=== PATIENT | female | born 1960 | race Caucasian/White ===

== ENCOUNTER 2017-05-22 08:54 | Day surgery (SDC) | payer OTHER ==
[2017-05-22] MEDS ORDERED: PROPOFOL 60 ML (09:30)
[2017-05-22] MEDS ORDERED: LIDOCAINE 2% (SDV) 5 ML INJ (09:30)
[2017-05-22] MEDS ORDERED: PROPOFOL 20 ML (10:10)
== END 2017-05-22 11:31 | disposition home or self-care (01) ==
LOC: GIL 08:54
DX: Z12.11 Encounter for screening for malignant neoplasm of colon (principal); K21.0 Gastro-esophageal reflux disease with esophagitis; K22.10 Ulcer of esophagus without bleeding; K64.8 Other hemorrhoids; K64.4 Residual hemorrhoidal skin tags
CPT/HCPCS: 43239; 88305; 88312; 88313

== ENCOUNTER → 2017-05-27 | Outpatient (CLI) | payer OTHER ==
[2017-05-27] MEDS: IOHEXOL 300MG/ML 30 ML BTL (14:30)
[2017-05-27] MEDS: HEPARIN 1000 UNITS/ML 10 ML INJ (15:00)
== END | disposition home or self-care (01) ==
LOC: RAD 13:16
DX: C50.919 Malignant neoplasm of unspecified site of unspecified female breast (principal)
CPT/HCPCS: 58340

== ENCOUNTER 2017-07-18 07:54 | Observation (INO) | payer OTHER ==
[~2017-07-18 07:54] MED LIST: BUPIVACAINE 0.5%/EPI (SDV) 30 ML INJ; CEFAZOLIN 1 GM INJ; CEFAZOLIN 2 GM/50 ML (PMX) 50 ML IVPB; EPHEDrine SULFATE 50 MG/5 ML SYG; FENTAnyl 50 MCG/ML VIAL; GLYCOPYRROLATE 0.4 MG INJ; MIDAZOLAM 1 MG/ML 2 ML INJ; NEOSTIGMINE 3 MG/3 ML SYRINGE; ONDANSETRON 4 MG INJ; PROPOFOL 20 ML; ROCURONIUM 50 MG INJ; SOD CHLORIDE 0.9% 1,000 ML IV; SUCCINYLCHOLINE CHLORIDE 100 MG/5 ML SYG IV
[2017-07-18] MEDS ORDERED: ISOSULFAN BLUE 1% 5 ML INJ SC (12:58)
[2017-07-18] MEDS ORDERED: PROCHLORPERAZINE 10 MG INJ IV (14:00)
[2017-07-18] MEDS ORDERED: HYDROmorphONE (0.2 MG/ML) 10ML SYG IV ×3 (14:00)
[2017-07-18] MEDS ORDERED: DIPHENHYDRAMINE 50 MG INJ IV (14:00)
[2017-07-18] MEDS ORDERED: hydrALAzine 20 MG INJ IV (14:00)
[2017-07-18] MEDS ORDERED: MEPERIDINE 25 MG INJ IV (14:00)
[2017-07-18] MEDS ORDERED: ONDANSETRON 4 MG INJ IV ×2 (14:00→16:00)
[2017-07-18] MEDS ORDERED: LABETALOL HCL 20MG INJ IV (14:00)
[2017-07-18] MEDS ORDERED: FENTAnyl 50 MCG/ML VIAL IV (14:00)
[2017-07-18] MEDS ORDERED: OXYCODONE/ACETAMINOPHEN (5/325) TAB PO (14:00)
[2017-07-18] MEDS ORDERED: MIDAZOLAM 1 MG/ML 2 ML INJ (14:05)
[2017-07-18] MEDS ORDERED: FENTAnyl 50 MCG/ML VIAL (14:05)
[2017-07-18] MEDS ORDERED: LIDOCAINE 2% (SDV) 5 ML INJ (14:19)
[2017-07-18] MEDS ORDERED: ONDANSETRON 4 MG INJ (14:19)
[2017-07-18] MEDS ORDERED: PROPOFOL 20 ML ×2 (14:19→14:52)
[2017-07-18] MEDS ORDERED: FAMOTIDINE 20 MG INJ (14:20)
[2017-07-18] MEDS ORDERED: DEXAMETHASONE 4 MG/ML 1 ML INJ (14:20)
[2017-07-18] MEDS ORDERED: GLYCOPYRROLATE 0.4 MG INJ (14:58)
[2017-07-18] MEDS ORDERED: HYDROmorphONE 2 MG/ML SYG (15:01)
[2017-07-18] MEDS ORDERED: ACETAMINOPHEN 1000MG/100ML IV 100 ML IVPB (16:00)
[2017-07-18] MEDS ORDERED: ACETAMINOPHEN 1000MG/100ML IV 100 ML (18:06)
[2017-07-18] MEDS: CEPASTAT LOZENGE MT (20:29)
[2017-07-18] MEDS: D5W-0.45 NACL + KCL 20 MEQ 1,000 ML IV ×2 (20:30→23:36)
[2017-07-18] MEDS: morphine 2 MG INJ IV (20:32)
[2017-07-18] MEDS ORDERED: ALPRAZOLAM 0.5 MG TAB PO (23:00)
[2017-07-18] MEDS: ZOLPIDEM 5 MG TAB PO (23:30)
[2017-07-19] MEDS: morphine 2 MG INJ IV ×3 (01:55→14:36)
[2017-07-19] MEDS: PANTOPRAZOLE (EC) 40 MG TAB PO (05:17)
[2017-07-19] MEDS: D5W-0.45 NACL + KCL 20 MEQ 1,000 ML IV ×2 (08:27→15:25)
[2017-07-19] MEDS: PAROXETINE 20 MG TAB PO (08:27)
[2017-07-19] MEDS: CEPASTAT LOZENGE MT ×2 (09:43→14:36)
== END 2017-07-19 18:45 | disposition home or self-care (01) ==
LOC: SDS 07:54 → REC 15:38 → PP2 18:50
DX: C50.412 Malignant neoplasm of upper-outer quadrant of left female breast (principal); F32.9 Major depressive disorder, single episode, unspecified; F41.9 Anxiety disorder, unspecified; K21.9 Gastro-esophageal reflux disease without esophagitis; J30.9 Allergic rhinitis, unspecified; G89.18 Other acute postprocedural pain
CPT/HCPCS: 19301; 88307; G0378

== ENCOUNTER 2017-12-20 06:11 | Day surgery (SDC) | payer OTHER ==
[~2017-12-20 06:11] MED LIST changes: -BUPIVACAINE 0.5%/EPI (SDV) 30 ML INJ; -CEFAZOLIN 1 GM INJ; -EPHEDrine SULFATE 50 MG/5 ML SYG; -FENTAnyl 50 MCG/ML VIAL; -GLYCOPYRROLATE 0.4 MG INJ; -MIDAZOLAM 1 MG/ML 2 ML INJ; -NEOSTIGMINE 3 MG/3 ML SYRINGE; -ONDANSETRON 4 MG INJ; -PROPOFOL 20 ML; -ROCURONIUM 50 MG INJ; -SOD CHLORIDE 0.9% 1,000 ML IV; -SUCCINYLCHOLINE CHLORIDE 100 MG/5 ML SYG IV
[2017-12-20] MEDS ORDERED: ATROPINE 1 MG/10 ML SYRINGE (07:00)
[2017-12-20] MEDS ORDERED: CEFAZOLIN 1 GM/50 ML (PMX) 50 ML IVPB (07:00)
[2017-12-20] MEDS ORDERED: EPHEDrine SULFATE 50 MG/5 ML SYG (07:00)
[2017-12-20] MEDS: SOD CHLORIDE 0.9% 1,000 ML IV (07:15)
[2017-12-20] MEDS ORDERED: FENTAnyl 50 MCG/ML VIAL IV ×3 (09:00)
[2017-12-20] MEDS ORDERED: DIPHENHYDRAMINE 50 MG INJ IV (09:00)
[2017-12-20] MEDS ORDERED: MEPERIDINE 25 MG INJ IV (09:00)
[2017-12-20] MEDS ORDERED: ONDANSETRON 4 MG INJ IV (09:00)
[2017-12-20] MEDS ORDERED: MIDAZOLAM 1 MG/ML 2 ML INJ IV (09:00)
[2017-12-20] MEDS ORDERED: hydrALAzine 20 MG INJ IV (09:00)
[2017-12-20] MEDS ORDERED: LABETALOL HCL 20MG INJ IV (09:00)
[2017-12-20] MEDS ORDERED: OXYCODONE/ACETAMINOPHEN (5/325) TAB PO ×2 (09:00)
[2017-12-20] MEDS ORDERED: EPHEDrine SULFATE 50 MG/5 ML SYG IV (09:00)
[2017-12-20] MEDS ORDERED: HYDROmorphONE 1 MG/5 ML IV SYRINGE IV ×2 (09:00)
[2017-12-20] MEDS ORDERED: ONDANSETRON 4 MG INJ (09:03)
[2017-12-20] MEDS ORDERED: CEFAZOLIN 1 GM INJ (09:03)
[2017-12-20] MEDS ORDERED: LIDOCAINE 2% (SDV) 5 ML INJ (09:03)
[2017-12-20] MEDS ORDERED: METOCLOPRAMIDE 10 MG INJ (09:03)
[2017-12-20] MEDS ORDERED: MEPERIDINE /PF (100 MG/2 ML) AMPULE (09:03)
[2017-12-20] MEDS ORDERED: PROPOFOL 20 ML (09:03)
[2017-12-20] MEDS ORDERED: HYDROCODONE/APAP (7.5/325) TAB PO (10:00)
[2017-12-20] MEDS: HYDROmorphONE 1 MG/5 ML IV SYRINGE IV (11:05)
[2017-12-20] MEDS: METOCLOPRAMIDE 10 MG INJ IV (11:05)
== END 2017-12-20 12:15 | disposition home or self-care (01) ==
LOC: SDS 06:11
DX: D05.12 Intraductal carcinoma in situ of left breast (principal)
CPT/HCPCS: 19301; 71045; 88307; 93005